=== PATIENT | male | born 1965 | race Caucasian/White ===

== ENCOUNTER 2016-03-30 07:16 | Day surgery (SDC) | payer OTHER, MEDICAID ==
[2016-03-30] MEDS ORDERED: SIMETHICONE 40 MG/0.6 ML ML ONE (07:32)
[2016-03-30 07:56] VITALS: O2SAT 99
[2016-03-30] MEDS ORDERED: MIDAZOLAM HCL 5 MG/5 ML VIAL ONE ×2 (07:57)
[2016-03-30] MEDS ORDERED: fentaNYL CITRATE/PF 100 MCG/2 ML AMP ONE (07:57)
[2016-03-30 12:04] VITALS: BP 144/62; PULSE 75; RESP 18
== END 2016-03-30 11:05 | disposition home or self-care (01) ==
LOC: SDS 07:16 → SMU 07:19 → SDS 11:05
PROVIDERS: ATTEND Internal Medicine
DX: Z12.11 Encounter for screening for malignant neoplasm of colon (principal)
CPT/HCPCS: G0121; J2250; J3010; J7030; 45378

== ENCOUNTER 2020-10-18 06:22 | Day surgery (SDC) | payer OTHER, MEDICAID, SELFPAY ==
[~2020-10-18] VITALS: Ht 162.6 cm; Wt 86.2 kg
[2020-10-18] MEDS ORDERED: hydrALAZINE HCL 25 MG TABLET PO ONE (07:30)
[2020-10-18] MEDS: fentaNYL CITRATE/PF 100 MCG/2 ML AMP ONE ×3 (08:19→08:24)
[2020-10-18] MEDS: MIDAZOLAM HCL 5 MG/5 ML VIAL ONE ×3 (08:19→08:24)
[2020-10-18 13:06] VITALS: BP_SYST 149
== END 2020-10-18 10:00 | disposition home or self-care (01) ==
LOC: SDS 06:22 → SMU 06:27 → SDS 10:00
PROVIDERS: ATTEND Internal Medicine Gastroenterology
DX: D64.9 Anemia, unspecified (principal); D12.5 Benign neoplasm of sigmoid colon; K64.8 Other hemorrhoids; K92.1 Melena; I12.0 Hypertensive chronic kidney disease with stage 5 chronic kidney disease or end stage renal disease; N18.6 End stage renal disease; K91.840 Postprocedural hemorrhage of a digestive system organ or structure following a digestive system procedure; E11.22 Type 2 diabetes mellitus with diabetic chronic kidney disease; E66.01 Morbid (severe) obesity due to excess calories; Z99.2 Dependence on renal dialysis; Z68.32 Body mass index [BMI] 32.0-32.9, adult; Z79.01 Long term (current) use of anticoagulants; Z79.82 Long term (current) use of aspirin; Z79.4 Long term (current) use of insulin; Z20.822 Contact with and (suspected) exposure to COVID-19
CPT/HCPCS: 45385; 82962; 88305; 99152; G0378; J2250; J3010; U0003; 45382; 45384